=== PATIENT | female | born 1980 | race Caucasian/White ===

== ENCOUNTER → 2016-12-18 | Outpatient (CLI) | payer BC ==
[~2016-12-18] MED LIST: FISH OIL SUPER1 SGL PO; GLUCOPHAGE XR500 M1 PO; GLUCOPHAGE1000 MG PO; IMMUNE BOOSTER1 PDS PO; MOTRIN 600600 MG/TAB PO; NORCO 325 MG-51 TAB PO; PERCOCET 325 MG1 TA2 PO; PRENATAL VITA1 UDTAB PO; PROBIOTIC FORMU1 CAP PO; STOOL SOFTENER100 M2 PO; SYNTHROID 0.0.025 MG PO
== END ==
LOC: COL.RAD 11:15
DX: N83.02 Follicular cyst of left ovary (principal); N83.01 Follicular cyst of right ovary; Z87.42 Personal history of other diseases of the female genital tract

== ENCOUNTER → 2017-02-05 | Outpatient (CLI) | payer BC | LOC: COL.LAB 18:35 | DX: Z32.00 Encounter for pregnancy test, result unknown (principal); O09.891 Supervision of other high risk pregnancies, first trimester; E34.9 Endocrine disorder, unspecified ==

== ENCOUNTER 2017-02-18 18:24 | Outpatient (RCR) | payer BC ==
[2017-02-18 19:41] LABS: THYROID STIMULATING HORMONE 1.14 uIU/mL (0.465-4.680)
== END 2017-05-19 ==
LOC: COL.LAB
PROVIDERS: Obstetrics & Gynecology
DX: E03.9 Hypothyroidism, unspecified (principal)

== ENCOUNTER → 2017-03-23 | Outpatient (CLI) | payer BC | LOC: COL.LAB 16:36 | DX: O09.891 Supervision of other high risk pregnancies, first trimester (principal); E34.9 Endocrine disorder, unspecified; Z3A.11 11 weeks gestation of pregnancy ==

== ENCOUNTER → 2017-04-15 | Outpatient (CLI) | payer BC | LOC: COL.LAB 14:22 | DX: O09.891 Supervision of other high risk pregnancies, first trimester (principal); E34.9 Endocrine disorder, unspecified ==

== ENCOUNTER 2017-05-31 16:48 | Outpatient (RCR) | payer BC | END 2017-08-29 | LOC: COL.LAB | DX: O09.891 Supervision of other high risk pregnancies, first trimester (principal); E34.9 Endocrine disorder, unspecified ==

== ENCOUNTER → 2017-07-30 | Outpatient (CLI) | payer BC | LOC: COL.LAB 08:28 | DX: O09.893 Supervision of other high risk pregnancies, third trimester (principal); E34.9 Endocrine disorder, unspecified; Z3A.32 32 weeks gestation of pregnancy ==

== ENCOUNTER 2017-10-09 05:37 | Inpatient (IN) | payer BC ==
[2017-10-09] VITALS (20 sets, daily range): BP systolic 104–127; BP diastolic 39–93; PULSE 63–87; TEMP 97–98.3
[~2017-10-09] VITALS: Ht 170.2 cm; Wt 71.8 kg
[2017-10-09] MEDS ORDERED: SYNTHROID0.05 MG/TA PO (06:48)
[2017-10-09] MEDS ORDERED: PRENATAL (06:48)
[2017-10-09 07:05] LABS: BASO % 0.5 % (0.0-2.0); EOS # 0.1 (0.0-0.7); EOS % 1.2 % (0-4.0); GRAN # 5.2 (1.4-6.5); GRAN % 63.7 % (42.2-75.2); LYMPH # 2.1 (1.2-3.4); LYMPH % 26.2 % (20.0-51.0); MEAN CELL VOLUME 94 fl (80.0-100.0); MEAN CORPUSCULAR HGB CONC 34 g/dl (33.0-37.0); MEAN PLATELET VOLUME 12.3 fl (7.4-10.4); MONO # 0.6 (0.1-0.6); MONO % 7.4 % (1.7-9.3); PLATELET COUNT 107 K/mm3 (130-400); RED BLOOD COUNT 3.66 M/mm3 (4.10-5.30)
[2017-10-09 07:10] LABS: HEMATOCRIT 34.4 % (37.0-47.0); HEMOGLOBIN 11.6 g/dl (12.5-16.0); MEAN CORPUSCULAR HEMOGLOBIN 32 pg (27.0-31.0)
[2017-10-10 02:00] VITALS: BP 116/80; PULSE 64; TEMP 97.6
[2017-10-10 06:17] VITALS: BP 109/60; PULSE 62; TEMP 97.4
[2017-10-10 07:04] LABS: HEMATOCRIT 28.8 % (37.0-47.0); HEMOGLOBIN 9.7 g/dl (12.5-16.0)
[2017-10-10 17:32] VITALS: BP 102/74; PULSE 76; TEMP 97.8
[2017-10-10 20:35] VITALS: BP 102/63; PULSE 72; TEMP 98.3
[2017-10-11 07:21] VITALS: BP 106/67; PULSE 69; TEMP 98.1
[2017-10-11] MEDS ORDERED: PERCOCET 325 MG1 TA2 PO (08:16)
[2017-10-11] MEDS ORDERED: MOTRIN 800800 MG/TAB PO (08:16)
== END 2017-10-11 16:40 | disposition home or self-care (01) | DRG 766 ==
LOC: OB 05:37 → LDR 06:40 → OB 10-11 16:40
PROVIDERS: Obstetrics & Gynecology
PROC: 10D00Z1 Extraction of Products of Conception, Low, Open Approach (ICD-10-PCS; principal; 2017-10-09)
DX: O34.211 Maternal care for low transverse scar from previous cesarean delivery (principal); N85.8 Other specified noninflammatory disorders of uterus; O99.824 Streptococcus B carrier state complicating childbirth; O99.284 Endocrine, nutritional and metabolic diseases complicating childbirth; E03.9 Hypothyroidism, unspecified; E28.2 Polycystic ovarian syndrome; O34.83 Maternal care for other abnormalities of pelvic organs, third trimester; Z3A.39 39 weeks gestation of pregnancy; Z37.0 Single live birth
CPT/HCPCS: J0171; J0690; J1885; J2370; J2405; J2590; J7120

== ENCOUNTER 2020-02-19 06:49 | Day surgery (SDC) | payer BC ==
[~2020-02-19] VITALS: Ht 170.2 cm; Wt 53.8 kg
[2020-02-19] VITALS (10 sets, daily range): BP systolic 90–107; BP diastolic 54–64; PULSE 57–76; TEMP 97.5–98.6
[~2020-02-19 06:49] MED LIST changes: +MOTRIN 800800 MG/TAB PO; +PRENATAL; +SYNTHROID0.05 MG/TA PO
[2020-02-19] MEDS ORDERED: [UNRECOGNIZED DRUG - OTHER] PO (07:57)
[2020-02-19] MEDS ORDERED: ULTRAM 50MG TAB50 MG PO (10:38)
--- NOTE | 2020-02-19 11:25 | NUR ---
Pt returned via cart to [facility] [facility]. Pt drowsy but arousable. VSS-see flowsheet. C/O pain on right side of abdomen, given pain medication prior to leaving PACU. Warm blankets applied to abdomen. Pt has take sips of water and tolerating. [place] noted clean dry and intact to 3 surgical site incisions to left side of abdomen. Side rails up, call light in reach. Lights dimmed for pt to rest.
--- NOTE | 2020-02-19 13:10 | NUR ---
Awake and sipping on water. [place] set dry on incisions. Ice placed on incisions. Sipping on Sprite.
--- NOTE | 2020-02-19 13:40 | NUR ---
Patient eating muffin and sipping on Sprite. Script for Ultram 50mg tab called to [facility] pharmacy.
--- NOTE | 2020-02-19 14:09 | NUR ---
Medicated with Motrin 600mg po for complaints of incisional soreness with movement. Tolerated muffin and Sprite.
--- NOTE | 2020-02-19 14:40 | NUR ---
Ice removed from incisional sites and warm blanket on stomach. Patient has been resting with eyes closed when not disturbed.
--- NOTE | 2020-02-19 15:10 | NUR ---
Patient assisted up to the bathroom and was able to void. IV fluids all infused and converted to INT. Became diaphoretic and pale with activity. Slightly nauseated and states that she feels very weak. Concerned about going home.
--- NOTE | 2020-02-19 15:30 | NUR ---
Dr. Cat notified that patient did not tolerate activity and expresses concerns about going home. Patient may stay the night and Dr. Moreno will see patient tomorrow am.
--- NOTE | 2020-02-19 16:20 | NUR ---
Report called to [facility].
--- NOTE | 2020-02-19 16:28 | NUR ---
Patient transferred to room 343 per cart with all personal belongings. Transferred from cart to bed with standby assist.
--- NOTE | 2020-02-19 16:30 | NUR ---
Patient arrived to floor from [facility] via bed. Patient is alert and oriented but sleepy. Patient denies pain at this time. Water at bedside, ice pack given per request. Patient instructed to call for SBA if she gets up, patient verbalized understanding. Patient denies further needs at this time, call light within reach.
--- NOTE | 2020-02-19 17:38 | NUR ---
Rating pain in abd 6/10 and would like pain medication. Reviewed med options. Patient agrees to Tramadol, administered as prescribed. Warm blanket provided. Patient denies additional needs at this time.
--- NOTE | 2020-02-19 18:30 | NUR ---
Patient resting in bed at this time. Has been up to commode with SBA, denies nausea. PRN medication administered once per patient request for pain. Patient denies needs at this time, call light within reach.
[2020-02-20 00:06] VITALS: BP 95/53; PULSE 51; TEMP 98.1
[2020-02-20 04:23] VITALS: BP 92/57; PULSE 55; TEMP 98.3
--- NOTE | 2020-02-20 05:26 | NUR ---
Patient has rested well throughout the night. PRN Ultram given at HS. Patient stated this was effective. States pain is worse when she is standing up, but otherwise its tolerable. 3 lap sites noted to abdomen. Edges well approximated. Denies any dizziness when standing this shift. Patient tolerating food and fluids well. Denies any further needs. Will continue to monitor.
[2020-02-20] MEDS ORDERED: FLEXERIL 1010 MG/TAB PO (08:02)
[2020-02-20] MEDS ORDERED: PERCOCET 325 MG1 TA2 PO (08:02)
--- NOTE | 2020-02-20 08:35 | NUR ---
Patient tearful. Her pain untolerable. notified. Patient medicated with motrin & ultram. Iv medication offered, no interest. discussed pain medication regiment with patient & taking more scheduled & not getting behind. k pad provided. Once medication started working patietn able to get to the bathroom & sit up in bed & have breakfast, she denies nasuea.
[2020-02-20 08:40] VITALS: BP 100/70; PULSE 51; TEMP 97.8
[2020-02-20 11:30] VITALS: BP 93/61; PULSE 54; TEMP 98.2
--- NOTE | 2020-02-20 13:04 | NUR ---
Patient ready for discharge. Her to take her home. Patient sleepy. All discharge instructions given to patient & also again to her at the car. Script for flexril & percocet sent with patient. We reviewed medication safety & last doses taken. I stressed activity restrictions & we discussed high protien diet for wound healing. Incision care & follow up appt reviewed. [place] denies questions & concerns. Dose of tramadoll prior to discharge to manage pain. Pain is still present but improving.
== END 2020-02-20 13:13 | disposition home or self-care (01) ==
LOC: SDCO 06:49 → SURG 16:30 → SDCO 02-20 13:13
DX: K42.9 Umbilical hernia without obstruction or gangrene (principal); M62.08 Separation of muscle (nontraumatic), other site; E03.9 Hypothyroidism, unspecified; Z20.828 Contact with and (suspected) exposure to other viral communicable diseases; E28.2 Polycystic ovarian syndrome; J45.909 Unspecified asthma, uncomplicated; Z79.899 Other long term (current) drug therapy
CPT/HCPCS: OP; C1781; J0690; J1100; J1885; J2405; J2704; J3010; J7120

== ENCOUNTER → 2020-04-12 | Outpatient (CLI) | payer BC ==
[~2020-04-12] MED LIST changes: +FLEXERIL 1010 MG/TAB PO; +ULTRAM 50MG TAB50 MG PO; +[UNRECOGNIZED DRUG - OTHER] PO
== END ==
LOC: COL.LAB 14:14
DX: E28.2 Polycystic ovarian syndrome (principal)

== ENCOUNTER → 2020-06-10 | Outpatient (CLI) | payer BC | LOC: MC.RAD 14:13 | DX: Z12.31 Encounter for screening mammogram for malignant neoplasm of breast (principal) ==